=== PATIENT | male | born 1990 | race Caucasian/White ===

== ENCOUNTER 2017-01-25 21:21 | Emergency (ER) | payer MEDICAID ==
[~2017-01-25] VITALS: Ht 1706 cm; Wt 54.4 kg
[~2017-01-25 21:21] MED LIST: AUGMENTIN 875875 MG PO; KEFLEX500 MG PO
[2017-01-25] MEDS ORDERED: CLARITIN10 MG PO ×2 (21:32→22:34)
== END 2017-01-25 22:42 | disposition home or self-care (01) ==
LOC: ED 21:21
DX: J30.9 Allergic rhinitis, unspecified (principal); F17.200 Nicotine dependence, unspecified, uncomplicated

== ENCOUNTER 2017-03-27 23:24 | Emergency (ER) | payer MEDICAID ==
[~2017-03-27] VITALS: Ht 160 cm; Wt 65.8 kg
[~2017-03-27 23:24] MED LIST changes: +CLARITIN10 MG PO
== END 2017-03-28 01:28 | disposition home or self-care (01) ==
LOC: ED 23:24
DX: S00.33XA Contusion of nose, initial encounter (principal); F17.200 Nicotine dependence, unspecified, uncomplicated; Y08.89XA Assault by other specified means, initial encounter; Y93.89 Activity, other specified; Y92.9 Unspecified place or not applicable; Y99.9 Unspecified external cause status

== ENCOUNTER 2017-04-01 19:01 | Emergency (ER) | payer MEDICAID ==
[~2017-04-01] VITALS: Wt 77.1 kg
[2017-04-01] MEDS ORDERED: CEPHALEXIN500 M1 PO (19:48)
== END 2017-04-01 19:23 | disposition home or self-care (01) ==
LOC: ED 19:01
DX: S61.012A Laceration without foreign body of left thumb without damage to nail, initial encounter (principal); Z29.12 Encounter for prophylactic antivenin; W26.0XXA Contact with knife, initial encounter; Y93.9 Activity, unspecified; Y92.9 Unspecified place or not applicable; Y99.9 Unspecified external cause status

== ENCOUNTER 2020-07-16 11:50 | Emergency (ER) | payer MEDICAID ==
[~2020-07-16] VITALS: Ht 170.1 cm; Wt 81.6 kg
[~2020-07-16 11:50] MED LIST changes: +CEPHALEXIN500 M1 PO; +PREDNISONE20 M1 PO; +VISTARIL25 MG PO
[2020-07-16] MEDS ORDERED: IBUPROFEN600 MG PO (15:18)
[2020-07-16] MEDS ORDERED: ROBAXIN-750750 MG PO (15:18)
== END 2020-07-16 15:20 | disposition home or self-care (01) ==
LOC: ED 11:50
DX: M54.5 Low back pain (principal); Z88.8 Allergy status to other drugs, medicaments and biological substances; Z79.899 Other long term (current) drug therapy

== ENCOUNTER 2022-09-30 12:14 | Emergency (ER) | payer MEDICAID ==
[~2022-09-30] VITALS: Ht 175.2 cm; Wt 77.1 kg
[~2022-09-30 12:14] MED LIST changes: +IBUPROFEN600 MG PO; +ROBAXIN-750750 MG PO
[2022-09-30 13:27] LABS: BASO % 0.7 % (0.0-1.0); EOS # 0.1 10*3/uL (0.0-0.4); EOS % 2.2 % (1.0-4.0); HEMATOCRIT 47.2 % (42.0-52.0); LYMPH # 1.4 10*3/uL (1.3-4.4); LYMPH % 23.5 % (27.0-41.0); MEAN CORPUSCULAR HGB CONC 34.1 g/dl (33.0-37.0); MEAN PLATELET VOLUME 10.6 fl (9.6-12.3); MONO # 0.7 10*3/uL (0.1-1.0); NEUT # 3.7 10*3/uL (2.3-7.9); NEUT % 61.4 % (47.0-73.0); PLATELET COUNT AUTOMATED 187 10*3/uL (130-400); RED BLOOD COUNT 5.55 10*6/uL (4.50-5.90); RED CELL DISTRI WIDTH 12.4 % (0-14.5)
[2022-09-30 13:46] LABS: ALKALINE PHOSPHATASE 66 U/L (45-117); BUN 12 mg/dl (7-24); CHLORIDE 106 mmol/L (98-107); CREATININE 1.07 mg/dL (0.70-1.30); POTASSIUM 3.5 mmol/L (3.5-5.1); SGPT/ALT 28 U/L (12-78); SODIUM 140 mmol/L (136-145)
[2022-09-30] MEDS ORDERED: ATHLETIC FOOT C30 GM T (13:55)
== END 2022-09-30 14:01 | disposition home or self-care (01) ==
LOC: ED 12:14
PROVIDERS: Nurse Practitioner Family
DX: B35.3 Tinea pedis (principal)

== ENCOUNTER → 2023-03-03 | Day surgery (SDC) | payer MEDICAID ==
[~2023-03-03] VITALS: Ht 162.5 cm; Wt 77.1 kg
[~2023-03-03] MED LIST changes: +ATHLETIC FOOT C30 GM T; +HYDROCODONE-AC1 EAC1 PO; +ONDANSETRON HYDR4 M1 PO
[2023-03-03 09:42] VITALS: BP 140/90
[2023-03-03 10:42] VITALS: BP 139/91
[2023-03-03 10:57] VITALS: BP 131/90
[2023-03-03 11:12] VITALS: BP 137/89
== END | disposition home or self-care (01) ==
LOC: SDC 02-27 12:30
PROVIDERS: ATTEND Surgery
DX: L72.11 Pilar cyst (principal); L82.1 Other seborrheic keratosis; R23.9 Unspecified skin changes; D48.9 Neoplasm of uncertain behavior, unspecified